=== PATIENT | female | born 1960 | race Caucasian/White ===

== ENCOUNTER → 2017-07-19 | Outpatient (CLI) | payer BC ==
[~2017-07-19] MED LIST: FLEXERIL10 MG PO; IBUPROFEN800 MG PO; LISINOPRIL20 MG PO; VITAMIN D250000 UNIT PO; ZESTORETIC 20-1 EAC1 PO; ZOLOFT50 MG PO
--- NOTE | ~2017-07-19 | EKG ---
PATIENT: RADHA COWAN UNIT #: [id number] Ventricular Rate: 66 BPM Atrial Rate: 66 BPM P-R Interval: 172 ms QRS Duration: 86 ms Q-T Interval: 376 ms QTC Calculation(Bezet): 394 ms P [place]: 53 degrees Calculated R [place]: 49 degrees Calculated T [place]: 40 degrees Diagnosis Line: Normal sinus rhythm Diagnosis Line: Normal ECG Diagnosis Line: No previous ECGs available Diagnosis Line: Confirmed by DEVIN MARIEE MD ([id number]) on Diagnosis Line: 07/20/2017 12:34:21 PM INTERPRETING MD: JAYLENE RAZA
[2017-07-19 15:45] LABS: BUN/CREATININE RATIO 25.71; CALCIUM SERUM 8.6 mg/dL (8.4-10.2); CREATININE SERUM 0.7 mg/dL (0.6-1.4); GLOM FILT RATE Estimated 96.9 mL/min (>60); POTASSIUM 3.8 mmol/L (3.5-5.1)
== END | disposition home or self-care (01) ==
LOC: CAMB 13:43
PROVIDERS: Surgery
DX: Z01.818 Encounter for other preprocedural examination (principal); D17.23 Benign lipomatous neoplasm of skin and subcutaneous tissue of right leg
CPT/HCPCS: 36415; 80048; 93005